=== PATIENT | female | born 1990 | race Caucasian/White ===

== ENCOUNTER 2020-09-09 02:18 | Outpatient (CLI) | payer OTHER, SELFPAY ==
[2020-09-10 12:45] LABS: COVID-19 RT-PCR Result NEGATIVE (Negative)
== END 2020-09-09 02:38 ==
PROVIDERS: PCP Nurse Practitioner Family; Visit Provider Family Medicine
DX: Z01.818 Encounter for other preprocedural examination (principal)
CPT/HCPCS: U0003

== ENCOUNTER 2020-09-12 02:26 | Outpatient (CLI) | payer OTHER, SELFPAY ==
[2020-09-12] MEDS: Albuterol HFA 18 GM 200 PUFF INH IH (17:08)
[2020-09-12] MEDS: Methacholine 100 MG VIAL IH (17:08)
[2020-09-12] MEDS: Inhaler, Assist Device 1 EACH MC (17:08)
--- NOTE | 2020-09-14 08:06 | W.PFT ---
Date of service: 09/12/20 Time of Service: 03:17 Pulmonary Function Test Result Interpretation Spirometry: Shows no evidence of obstructive airways disease. No Bronchodilator response Lung Volumes: No evidence of restriction Diffusion Capacity: Elevated even when corrected to alveolar volume Airway Pressure: Normal Impression Isolated elevated diffusion capacity seen on the study can be seen in asthma. If the diagnosis of asthma is suspected proceeding with methacholine challenge testing may prove to be useful Clinical Correlation therefore is recommended. Methacholine Challnege Test Date of Service Date of Service: 09/12/2020 Note After normal spirometry methacholine challenge testing was carried out up to methacholine concentration of 8 mg/mL. At that point the patient had a 23% drop in FEV1 Impression Positive methacholine challenge test, clinical correlation recommended
== END 2020-09-12 02:46 ==
PROVIDERS: PCP Nurse Practitioner Family; Visit Provider Nurse Practitioner Family
DX: R05 Cough (principal); R06.2 Wheezing; Z87.09 Personal history of other diseases of the respiratory system
CPT/HCPCS: 94060; 94726; 94729; 95070; 94010; J7674

== ENCOUNTER 2022-12-12 16:55 | Outpatient (REF) | payer OTHER, SELFPAY ==
[2022-12-12 16:00] LABS: HCT 41.9 % (36.0-46.0); HGB 13.5 g/dL (11.2-15.7); MCH 27.7 pg (27.0-33.0); MCHC 32.2 % (32.0-36.0); MCV 86 fL (80-95); MPV 10.8 fL (8.0-11.0); Platelet Count 301 10^3/uL (130-400); RBC 4.87 10^6/uL (3.93-5.22); RDW-SD 41.1 fL; WBC 6.72 10^3/uL (4.4-10.8)
[2022-12-12 16:09] LABS: TSH (W/Ref FT4) 8.61 uIU/mL (0.36-3.74)
[2022-12-12 17:11] LABS: FREE T4 0.77 ng/dL (0.76-1.46)
[2022-12-12 17:15] LABS: Hemoglobin A1C 5.2 % (<5.7)
== END 2022-12-12 16:56 | disposition home or self-care (01) ==
LOC: NCHCN 16:55
PROVIDERS: PCP Nurse Practitioner Family; Visit Provider Nurse Practitioner Family
DX: F41.8 Other specified anxiety disorders (principal); Z13.1 Encounter for screening for diabetes mellitus; R94.6 Abnormal results of thyroid function studies
CPT/HCPCS: 85027; 83036; 84439; 84443

== ENCOUNTER 2023-02-07 14:47 | Outpatient (REF) | payer OTHER, SELFPAY ==
[2023-02-07 16:37] LABS: FREE T4 0.72 ng/dL (0.76-1.46); TSH 5.53 uIU/mL (0.36-3.74)
== END 2023-02-07 14:48 | disposition home or self-care (01) ==
LOC: NCHCN 14:47
PROVIDERS: PCP Nurse Practitioner Family; Visit Provider Nurse Practitioner Family
DX: R94.6 Abnormal results of thyroid function studies (principal)
CPT/HCPCS: 84439; 84443

== ENCOUNTER 2023-09-09 13:41 | Outpatient (REF) | payer BC, SELFPAY ==
[2023-09-09 16:23] LABS: FREE T4 0.89 ng/dL (0.76-1.46); TSH 4.85 uIU/mL (0.36-3.74)
== END 2023-09-09 13:42 | disposition home or self-care (01) ==
LOC: NCHCN 13:41
PROVIDERS: PCP Nurse Practitioner Family; Visit Provider Nurse Practitioner Family
DX: E03.9 Hypothyroidism, unspecified (principal); F41.9 Anxiety disorder, unspecified
CPT/HCPCS: 84439; 84443

== ENCOUNTER 2024-01-22 13:33 | Outpatient (REF) | payer BC, SELFPAY ==
[2024-01-22 15:19] LABS: FREE T4 0.73 ng/dL (0.76-1.46); TSH 8.49 uIU/Ml (0.36-3.74)
== END 2024-01-22 13:34 | disposition home or self-care (01) ==
LOC: NCHCN 13:33
PROVIDERS: PCP Nurse Practitioner Family; Referring Provider Nurse Practitioner Family; Visit Provider Nurse Practitioner Family
DX: F41.9 Anxiety disorder, unspecified (principal)
CPT/HCPCS: 84439; 84443

== ENCOUNTER 2024-09-30 22:27 | Outpatient (REF) | payer SELFPAY ==
[2024-09-30 15:33] LABS: FREE T4 0.83 ng/dL (0.76-1.46); TSH 7.24 uIU/mL (0.36-3.74)
[2024-09-30 17:08] LABS: Vitamin D 25 Total 18.4 ng/mL (30-100)
--- OUTSIDE RECORDS SUMMARY | 2024-09-30 22:29 | XMS_ITS | Encounter Summary ---
Author Organization [facility] Address [address] [place] [address] Care Team Providers Care Food And Beverage Attendant Name Role Phone Unavailable Primary Care Provider Unavailabl e Encounter Details Date Type Department Care Team (Late st Contact Info) Description 09/09/2020 Lab Requisition [facility] Pathology & Laboratory Medicine - [facility] [address] [place] [address] Outr Resulting Lab, Provider Social History Tobacco Use Types Packs/Day Years Used Date Smoking Tobacco: Never Assessed Interpersonal Safety Answer Date Record ed Physically Hurt Never 09/12/2020 Verbally Threaten Not on file 09/12/2020 Comments Unknown Sex and Gender Information Value Date Recorded Sex Assigned at Not on file Legal Sex Female 12:23 EDT Gender Identity Not on file Sexual Orientation Not on file documented as of this encounter Plan of Treatment Not on file documented as of this encounter Procedures Procedure Name Priority Date/Time Associated Diagnosis Comments DO NOT ORDER STANDALONE - BROAD COVID TEST Today 09/09/2020 9:44 EDT COVID-19 TESTING Routine 09/09/2020 9:44 EDT documented in this encounter Results * DO NOT ORDER STANDALONE - BROAD COVID TEST (09/09/2020 9:44 EDT) COVID-19 rt-PCR Result NEGATIVE Negative 09/10/2020 11:[address] [facility] Comment: 2019-novel Coronavirus (2019-nCoV) not detected by the qRT-PCR assay. Consider testing for other respiratory viruses or re-collecting for 2019-nCoV testing. Note: Optimum timing for peak viral levels during infections caused by 2019-nCoV have not been determined. Collection of multiple specimens from the same patient may be necessary to detect the virus. Limitations Positive results are indicative of active infection with SARS-CoV-2 but do not rule out bacterial infection or co-infection with other viruses. The agent detected may not be the definite cause of disease. In addition, detection of viral RNA may not indicate the presence of infectious virus or that SARS-CoV-2 is the causative agent for clinical symptoms. Negative results do not preclude SARS-CoV-2 infection and should not be used as the sole basis for patient management decisions. Negative results must be combined with clinical observations, patient history, and epidemiological information. False negative results may also occur if amplification inhibitors are present in the specimen or if inadequate numbers of organisms are present in the specimen. Optimum specimen types and timing for peak viral levels during infections caused by SARS-CoV-2 have not been fully determined. Collection of multiple specimens (types and time points) from the same patient may be necessary to detect the virus. The test was validated for use with upper respiratory specimens obtained via nasopharyngeal or oropharyngeal swabs in VTM, UTM, M4, M5, M6, saline, and MTM media. The performance of this test has not been established for other specimens. Specimens collected using other FDA recommended Specimen Collection Materials listed in the FDA COVID-19 [employer] communication (February 11, 2020) are processed with the caveat that they were not all validated for use with this test and the result must be interpreted in this context. Furthermore, a false negative results may occur if a specimen is improperly collected, transported or handled. If the virus mutates in the RT-PCR target region, SARS-CoV-2 may not be detected or may be detected less predictably. Inhibitors or other types of interference may produce a false negative result. An interference study evaluating the effect of common cold medications was not performed. This test is not FDA-cleared but its performance characteristics were established by our CLIA-certified, CAP-accredited, high complexity laboratory in accordance with CLIA regulations, [employer] (CAP) guidelines (Feb 04, 2020), and FDA guidance (Jan 16, 2020). This test is only for use under the Food and Drug Administration's Emergency Use Authorization. Swab ENTIRE NASOPHARYNX / Unknown 09/09/2020 9:44 EDT 09/09/2020 15:52 EDT us Provider Outr Resulting Lab MICROBIOLOGY - GENER AL ORDERABLES Final Result [facility] [place], [place] * COVID-19 TESTING (09/09/2020 9:44 EDT) Pathologist [facility] COVID-19 rt-PCR Result NEGATIVE Negative 09/10/2020 12:38 EDT [facility] Comment: 2019-novel Coronavirus (2019-nCoV) not detected by the qRT-PCR assay. Consider testing for other respiratory viruses or re-collecting for 2019-nCoV testing. Note: Optimum timing for peak viral levels during infections caused by 2019-nCoV have not been determined. Collection of multiple specimens from the same patient may be necessary to detect the virus. Limitations Positive results are indicative of active infection with SARS-CoV-2 but do not rule out bacterial infection or co-infection with other viruses. The agent detected may not be the definite cause of disease. In addition, detection of viral RNA may not indicate the presence of infectious virus or that SARS-CoV-2 is the causative agent for clinical symptoms. Negative results do not preclude SARS-CoV-2 infection and should not be used as the sole basis for patient management decisions. Negative results must be combined with clinical observations, patient history, and epidemiological information. False negative results may also occur if amplification inhibitors are present in the specimen or if inadequate numbers of organisms are present in the specimen. Optimum specimen types and timing for peak viral levels during infections caused by SARS-CoV-2 have not been fully determined. Collection of multiple specimens (types and time points) from the same patient may be necessary to detect the virus. The test was validated for use with upper respiratory specimens obtained via nasopharyngeal or oropharyngeal swabs in VTM, UTM, M4, M5, M6, saline, and MTM media. The performance of this test has not been established for other specimens. Specimens collected using other FDA recommended Specimen Collection Materials listed in the FDA COVID-19 [employer] communication (February 11, 2020) are processed with the caveat that they were not all validated for use with this test and the result must be interpreted in this context. Furthermore, a false negative results may occur if a specimen is improperly collected, transported or handled. If the virus mutates in the RT-PCR target region, SARS-CoV-2 may not be detected or may be detected less predictably. Inhibitors or other types of interference may produce a false negative result. An interference study evaluating the effect of common cold medications was not performed. This test is not FDA-cleared but its performance characteristics were established by our CLIA-certified, CAP-accredited, high complexity laboratory in accordance with CLIA regulations, [employer] (CAP) guidelines (Feb 04, 2020), and FDA guidance (Jan 16, 2020). This test is only for use under the Food and Drug Administration's Emergency Use Authorization. Performing Lab [facility] 09/10/2020 12:38 EDT [facility] Swab 09/09/2020 9:44 EDT 09/09/2020 15:52 EDT us Provider Outr Resulting Lab MICROBIOLOGY - GENER AL ORDERABLES Final Result [facility] [address] [place] [address] [facility] [place], [place] documented in this encounter Visit Diagnoses Not on filedocumented in this encounter
--- OUTSIDE RECORDS SUMMARY | 2024-09-30 22:29 | XMS_ITS | Referral Summary ---
Author Organization [facility] Address [address] [place] [address] Care Team Providers Care Fifth Grade Teacher Name Role Phone Unavailable Primary Care Provider Unavailabl e Social History Tobacco Use Types Packs/Day Years Used Date Smoking Tobacco: Never Assessed Interpersonal Safety Answer Date Record ed Physically Hurt Never 09/12/2020 Verbally Threaten Not on file 09/12/2020 Comments Unknown Sex and Gender Information Value Date Recorded Sex Assigned at Not on file Legal Sex Female 12:23 EDT Gender Identity Not on file Sexual Orientation Not on file Plan of Treatment Not on file
--- OUTSIDE RECORDS SUMMARY | 2024-09-30 22:29 | XMS_ITS | Clinical Summary ---
Author Organization [facility] Address [address] [place] [address] Care Team Providers Care Cost Reduction Engineer Name Role Phone Unavailable Primary Care Provider [...] Orientation Not on file Plan of Treatment Health Maintenance Due Date Last Done Comments Hepatitis C Screen 1990 Hepatitis B Vaccine (1 of 3 - 19+ 3-dose series) 09/08 COVID-19 Vaccine (2023- season) 2024
== END 2024-09-30 22:28 | disposition home or self-care (01) ==
LOC: NCHCN 22:27
PROVIDERS: PCP Nurse Practitioner Family; Visit Provider Physician Assistant Medical
DX: E03.9 Hypothyroidism, unspecified (principal); E55.9 Vitamin D deficiency, unspecified; F41.8 Other specified anxiety disorders
CPT/HCPCS: 82306; 84439; 84443